=== PATIENT | female | born 1940 | race Caucasian/White ===

== ENCOUNTER 2021-06-06 14:00 | Observation (INO) | payer MEDICARE, MEDICAID ==
[2021-06-06] MEDS ORDERED: Aspirin Chewable 81 MG TAB ONE (14:36)
[2021-06-06 15:07] LABS: #Eosinphils 0.1 10x3/uL (0.0-0.5); #Monocytes 0.5 10x3/uL (0.0-1.1); #Neutrophils 5.7 10x3/uL (1.5-8.4); %Basophils 0.3 % (0.0-2.0); %Eosinophils 1.6 % (0.0-6.0); %Neutrophils 73.8 % (40.0-75.0); Hemoglobin 10.9 g/dL (12.0-15.5); Mean Corpuscular HGB CONC 32.1 g/dL (32.0-36.0); Mean Corpuscular Hemoglobin 29.2 pg (27.0-33.0); Mean Corpuscular Volume 91.2 fl (81.6-98.3); Mean Platelet Volume 9.8 fl (7.4-10.4); Platelet Count 301 10x3/uL (150-450); RBC Distribution Width 15.7 % (11.5-14.5); Red Blood Cell (RBC) Count 3.73 10x6/uL (3.90-5.03); White Blood Cell (WBC) Count 7.7 10x3/uL (3.5-10.5)
[2021-06-06 15:24] LABS: ALT (SGPT) 10 U/L (8-55); AST (SGOT) 13 U/L (5-34); Albumin 3.6 g/dL (3.4-4.8); Alkaline Phosphatase 89 U/L (40-110); Anion Gap 16 mmol/L (10-20); BUN (Urea Nitrogen) 24 mg/dL (9.8-20.1); Bilirubin, Total 1.6 mg/dL (0.2-1.2); Calc. Creatinine Clearance 0 mL/min (70-130); Calcium 9.4 mg/dL (7.8-10.44); Carbon Dioxide 30 mmol/L (23-31); Chloride 97 mmol/L (98-107); Globulin 3.7 g/dL (2.4-3.5); Glucose 200 mg/dL (83-110); Potassium 3.5 mmol/L (3.5-5.1); Protein, Total 7.3 g/dL (5.8-8.1); Sodium 139 mmol/L (136-145)
[2021-06-06] MEDS ORDERED: LIDOCAINE TD PRN (17:09)
[2021-06-06] MEDS ORDERED: Dextrose 5% in Water 1,000 ML IV PRN (17:12)
[2021-06-06] MEDS ORDERED: Acetaminophen 325 MG TAB PO PRN (17:12)
[2021-06-06] MEDS ORDERED: Dextrose 50% Abboject 50 ML SYRINGE SLOW IVP PRN (17:12)
[2021-06-06] MEDS ORDERED: Ondansetron PF 4 MG/2 ML Vial IVP PRN (17:12)
[2021-06-06] MEDS ORDERED: Nitroglycerin 0.4 MG TAB (25 Tab Bottle) SL PRN (17:17)
[2021-06-06 18:08] LABS: Troponin I Less than 0.010 ng/mL (< 0.028)
[2021-06-06 18:43] LABS: SARS-CoV-2 NAA Rapid Test Not Detected (NotDetected)
[2021-06-06 20:24] LABS: Hemoglobin A1c 9.1 % (4.0-6.0)
[2021-06-06] MEDS ORDERED: traMADol HCl 50 MG TAB PO PRN (21:20)
[2021-06-06] MEDS ORDERED: Atorvastatin Calcium 20 MG TAB PO SCH (21:30)
[2021-06-06] MEDS ORDERED: traZODone HCl 50 MG TAB PO SCH (21:30)
[2021-06-06] MEDS ORDERED: DULoxetine 30 MG CAP PO SCH (21:30)
[2021-06-06] MEDS ORDERED: Aripiprazole 10 MG TAB PO SCH (21:30)
[2021-06-06] MEDS ORDERED: Lactated Ringer's 1,000 ML IV SCH (21:30)
[2021-06-06] MEDS ORDERED: Famotidine 20 MG TAB PO SCH (21:30)
[2021-06-06 22:19] VITALS: BMI 41.4
[2021-06-06] MEDS: Gabapentin 300 MG CAP PO SCH (23:14)
[2021-06-06] MEDS: DULoxetine 30 MG CAP PO SCH (23:16)
[2021-06-07 00:10] LABS: Troponin I Less than 0.010 ng/mL (< 0.028)
[2021-06-07] MEDS ORDERED: Nystatin Powder 15 GM BOT TOP SCH (04:00)
[2021-06-07] MEDS: Levothyroxine Sodium 50 MCG TAB PO SCH (07:45)
[2021-06-07 07:59] LABS: #Eosinphils 0.1 10x3/uL (0.0-0.5); #Monocytes 0.5 10x3/uL (0.0-1.1); #Neutrophils 4.5 10x3/uL (1.5-8.4); %Basophils 0.2 % (0.0-2.0); %Eosinophils 2.3 % (0.0-6.0); %Lymphocytes 14.6 % (18.0-47.0); %Neutrophils 74.6 % (40.0-75.0); Hemoglobin 10.2 g/dL (12.0-15.5); Mean Corpuscular HGB CONC 32.3 g/dL (32.0-36.0); Mean Corpuscular Hemoglobin 28.8 pg (27.0-33.0); Mean Corpuscular Volume 89.3 fl (81.6-98.3); Mean Platelet Volume 9.4 fl (7.4-10.4); Platelet Count 256 10x3/uL (150-450); RBC Distribution Width 15.9 % (11.5-14.5); Red Blood Cell (RBC) Count 3.54 10x6/uL (3.90-5.03); White Blood Cell (WBC) Count 6.1 10x3/uL (3.5-10.5)
[2021-06-07 08:23] LABS: Anion Gap 17 mmol/L (10-20); BUN (Urea Nitrogen) 19 mg/dL (9.8-20.1); Calc. Creatinine Clearance 63 mL/min (70-130); Calcium 9.2 mg/dL (7.8-10.44); Carbon Dioxide 26 mmol/L (23-31); Chloride 100 mmol/L (98-107); Glucose 151 mg/dL (83-110); Potassium 3.4 mmol/L (3.5-5.1); Sodium 140 mmol/L (136-145)
[2021-06-07] MEDS: Lantus 1000 UNITS/10 ML VIAL SC SCH (08:27)
[2021-06-07] MEDS: Furosemide 40 MG TAB PO SCH (08:27)
[2021-06-07] MEDS: Alogliptin 6.25 MG TAB PO SCH (08:27)
[2021-06-07] MEDS: Ferrous Sulfate 325 MG TAB PO SCH ×2 (08:56→18:36)
[2021-06-07] MEDS: Rivaroxaban 10 MG TAB PO SCH (08:56)
[2021-06-07] MEDS: Potassium Chloride 20 MEQ TAB PO SCH (08:56)
[2021-06-07] MEDS: Famotidine 20 MG TAB PO SCH ×2 (08:56→22:24)
[2021-06-07] MEDS: Aspirin 81 mg Enteric Coated Tablet PO SCH (08:56)
[2021-06-07] MEDS: Gabapentin 300 MG CAP PO SCH ×3 (08:56→22:25)
[2021-06-07] MEDS: Nystatin Powder 15 GM BOT TOP SCH ×2 (09:04→22:25)
[2021-06-07] MEDS ORDERED: Potassium Chloride 20 MEQ TAB PO SCH (12:00)
[2021-06-07] MEDS: HumaLOG 300 UNITS/3 ML VIAL SC PRN ×2 (12:10→18:37)
[2021-06-07] MEDS: Atorvastatin Calcium 20 MG TAB PO SCH (22:22)
[2021-06-07] MEDS: traZODone HCl 50 MG TAB PO SCH (22:22)
[2021-06-07] MEDS: Aripiprazole 10 MG TAB PO SCH (22:23)
[2021-06-08] MEDS: Levothyroxine Sodium 50 MCG TAB PO SCH (05:50)
[2021-06-08 06:44] LABS: Anion Gap 15 mmol/L (10-20); BUN (Urea Nitrogen) 18 mg/dL (9.8-20.1); Calc. Creatinine Clearance 67 mL/min (70-130); Calcium 8.7 mg/dL (7.8-10.44); Carbon Dioxide 26 mmol/L (23-31); Chloride 104 mmol/L (98-107); Glucose 148 mg/dL (83-110); Potassium 3.8 mmol/L (3.5-5.1); Sodium 141 mmol/L (136-145)
[2021-06-08 07:34] LABS: #Eosinphils 0.1 10x3/uL (0.0-0.5); #Monocytes 0.4 10x3/uL (0.0-1.1); #Neutrophils 3.2 10x3/uL (1.5-8.4); %Basophils 0.4 % (0.0-2.0); %Lymphocytes 20.4 % (18.0-47.0); %Monocytes 8.5 % (0.0-10.0); %Neutrophils 67.5 % (40.0-75.0); Hemoglobin 10.1 g/dL (12.0-15.5); Mean Corpuscular HGB CONC 31.9 g/dL (32.0-36.0); Mean Corpuscular Volume 91.1 fl (81.6-98.3); Mean Platelet Volume 9.8 fl (7.4-10.4); Platelet Count 262 10x3/uL (150-450); RBC Distribution Width 15.8 % (11.5-14.5); Red Blood Cell (RBC) Count 3.48 10x6/uL (3.90-5.03); White Blood Cell (WBC) Count 4.7 10x3/uL (3.5-10.5)
[2021-06-08] MEDS: Furosemide 40 MG TAB PO SCH (08:48)
[2021-06-08] MEDS: Ferrous Sulfate 325 MG TAB PO SCH ×2 (08:49→16:00)
[2021-06-08] MEDS: Alogliptin 6.25 MG TAB PO SCH (08:49)
[2021-06-08] MEDS: Aspirin 81 mg Enteric Coated Tablet PO SCH (08:49)
[2021-06-08] MEDS: Potassium Chloride 20 MEQ TAB PO SCH (08:49)
[2021-06-08] MEDS: Gabapentin 300 MG CAP PO SCH ×3 (08:49→21:52)
[2021-06-08] MEDS: Famotidine 20 MG TAB PO SCH ×2 (08:49→21:51)
[2021-06-08] MEDS: Rivaroxaban 10 MG TAB PO SCH (08:49)
[2021-06-08] MEDS: Nystatin Powder 15 GM BOT TOP SCH ×2 (08:50→21:30)
[2021-06-08] MEDS: Lantus 1000 UNITS/10 ML VIAL SC SCH (08:50)
[2021-06-08] MEDS: HumaLOG 300 UNITS/3 ML VIAL SC PRN (17:24)
[2021-06-08] MEDS: Aripiprazole 10 MG TAB PO SCH (21:50)
[2021-06-08] MEDS: Atorvastatin Calcium 20 MG TAB PO SCH (21:51)
[2021-06-08] MEDS: traZODone HCl 50 MG TAB PO SCH (21:51)
[2021-06-08] MEDS: DULoxetine 30 MG CAP PO SCH (21:52)
[2021-06-09] MEDS: Levothyroxine Sodium 50 MCG TAB PO SCH (05:20)
[2021-06-09 07:46] VITALS: TEMP 98.1
[2021-06-09 09:10] VITALS: BP 114/43
[2021-06-09] MEDS: Famotidine 20 MG TAB PO SCH (10:15)
[2021-06-09] MEDS: Gabapentin 300 MG CAP PO SCH (10:15)
[2021-06-09] MEDS: Ferrous Sulfate 325 MG TAB PO SCH (10:15)
[2021-06-09] MEDS: Alogliptin 6.25 MG TAB PO SCH (10:16)
[2021-06-09] MEDS: Potassium Chloride 20 MEQ TAB PO SCH (10:16)
[2021-06-09] MEDS: Furosemide 40 MG TAB PO SCH (10:16)
[2021-06-09] MEDS: Rivaroxaban 10 MG TAB PO SCH (10:16)
[2021-06-09] MEDS: Aspirin 81 mg Enteric Coated Tablet PO SCH (10:16)
[2021-06-09] MEDS: Lantus 1000 UNITS/10 ML VIAL SC SCH (10:16)
[2021-06-09] MEDS: Nystatin Powder 15 GM BOT TOP SCH (10:17)
== END 2021-06-09 12:59 ==
LOC: CSHERS 14:00 → CSHTELE 19:57 → INTOOBSV 19:57 → CSHTELE 06-07 16:44
PROVIDERS: ADMIT Student in an Organized Health Care Education/Training Program; ATTEND Internal Medicine
DX: R07.89 Other chest pain (principal); N17.9 Acute kidney failure, unspecified; E11.9 Type 2 diabetes mellitus without complications; E03.9 Hypothyroidism, unspecified; G30.9 Alzheimer's disease, unspecified; F02.80 Dementia in other diseases classified elsewhere, unspecified severity, without behavioral disturbance, psychotic disturbance, mood disturbance, and anxiety; K21.9 Gastro-esophageal reflux disease without esophagitis; E78.5 Hyperlipidemia, unspecified; D50.9 Iron deficiency anemia, unspecified; I11.9 Hypertensive heart disease without heart failure; Z20.822 Contact with and (suspected) exposure to COVID-19; Z79.899 Other long term (current) drug therapy; Z79.4 Long term (current) use of insulin; Z79.01 Long term (current) use of anticoagulants
CPT/HCPCS: 71045; 74176; 80048 ×2; 80053; 82962 ×4; 83036; 83880; 84484 ×2; 85025 ×3; 93005; 93306; 96374; 96375; 99285; G0378 ×5; J1610; U0002; 36415; 36416; J1815; J2405; J7070; J7120

== ENCOUNTER 2022-01-10 18:24 | Inpatient (IN) | payer MEDICARE, MEDICAID ==
[2022-01-10 18:51] LABS: #Monocytes 0.3 10x3/uL (0.0-1.1); #Neutrophils 9.5 10x3/uL (1.5-8.4); %Basophils 0.1 % (0.0-2.0); %Monocytes 2.6 % (0.0-10.0); Hemoglobin 12.5 g/dL (12.0-15.5); Mean Corpuscular HGB CONC 32.2 g/dL (32.0-36.0); Mean Corpuscular Hemoglobin 28.2 pg (27.0-33.0); Mean Corpuscular Volume 87.6 fl (81.6-98.3); Mean Platelet Volume 10.1 fl (7.4-10.4); Platelet Count 278 10x3/uL (150-450); RBC Distribution Width 15.2 % (11.5-14.5); Red Blood Cell (RBC) Count 4.43 10x6/uL (3.90-5.03); White Blood Cell (WBC) Count 10.2 10x3/uL (3.5-10.5)
[2022-01-10] MEDS ORDERED: Acetaminophen 500 MG TAB ONE (18:55)
[2022-01-10] MEDS ORDERED: cefTRIAXone\\ROCEPHIN 1 GM VIAL ONE (18:57)
[2022-01-10] MEDS ORDERED: cefTRIAXone\\ROCEPHIN 2 GM VIAL ONE (18:58)
[2022-01-10] MEDS ORDERED: Azithromycin 500 MG VIAL ONE (18:58)
[2022-01-10 19:21] LABS: Bilirubin Neg (Negative); Blood, Urine 50 (Negative); Clarity Cloudy (Clear); Glucose, Urine (Dipstick) Normal (Negative); Ketone, Urine Negative (Negative); Leukocyte 500 (Negative); Nitrite Positive (Negative); Protein, Urine (Dipstick) 15 mg/dl (Neg-Trace); Urobilinogen Normal mg/dL (Less than 2)
[2022-01-10 19:32] LABS: Bacteria/HPF 4+ HPF (None Seen); Mucous/LPF None Seen LPF (<2+); RBC/HPF 0-3 HPF (0-3); Squamous Epithelial 0-3 HPF (0-3); WBC/HPF Greater than 50 HPF (0-3)
[2022-01-10 19:45] LABS: ALT (SGPT) 10 U/L (8-55); AST (SGOT) 11 U/L (5-34); Albumin 3.5 g/dL (3.4-4.8); Alkaline Phosphatase 97 U/L (40-110); Anion Gap 14 mmol/L (10-20); BUN (Urea Nitrogen) 20 mg/dL (9.8-20.1); Bilirubin, Total 1.5 mg/dL (0.2-1.2); Calc. Creatinine Clearance 0 mL/min (70-130); Calcium 8.5 mg/dL (7.8-10.44); Carbon Dioxide 30 mmol/L (23-31); Chloride 102 mmol/L (98-107); Globulin 3.6 g/dL (2.4-3.5); Glucose 157 mg/dL (83-110); Potassium 4.4 mmol/L (3.5-5.1); Protein, Total 7.1 g/dL (5.8-8.1); Sodium 142 mmol/L (136-145)
[2022-01-10] MEDS ORDERED: Dextrose 50% Abboject 50 ML SYRINGE SLOW IVP PRN (21:13)
[2022-01-10] MEDS ORDERED: Senokot S 8.6-50 MG TAB PO PRN (21:13)
[2022-01-10] MEDS ORDERED: HumaLOG 300 UNITS/3 ML VIAL SC PRN (21:13)
[2022-01-10] MEDS ORDERED: Guaifenesin DM 100-10/5 ML UDCUP PO PRN (21:13)
[2022-01-10] MEDS ORDERED: Dextrose 5% in Water 1,000 ML IV PRN (21:13)
[2022-01-10] MEDS ORDERED: Vancomycin 1.5 GRAM/300 ML BAG 1.5 GM in Premix Bag 1 BAG IVPB SCH (21:15)
[2022-01-10] MEDS ORDERED: Vancomycin HCl 500 MG VIAL ONE (21:26)
[2022-01-10] MEDS ORDERED: Lactated Ringer's 1,000 ML IV SCH (21:30)
[2022-01-10 23:01] LABS: SARS-CoV-2 NAA Rapid Test Not Detected (NotDetected)
[2022-01-10 23:04] VITALS: BMI 40.3
[2022-01-10] MEDS ORDERED: Vancomycin HCl 500 MG in Sodium Chloride 0.9% 100 ML IVPB SCH (23:30)
[2022-01-11 01:40] LABS: Legionella Urinary Ag Negative (Negative); Strep pneumo Urine Ag NEGATIVE (NEGATIVE)
[2022-01-11] MEDS: Piperacillin/Tazobactam 3.375 GM in Sodium Chloride 0.9% 100 ML IVPB SCH ×3 (02:02→16:54)
[2022-01-11 05:50] LABS: #Monocytes 0.5 10x3/uL (0.0-1.1); #Neutrophils 5.8 10x3/uL (1.5-8.4); %Basophils 0.1 % (0.0-2.0); %Eosinophils 0.1 % (0.0-6.0); %Lymphocytes 9.7 % (18.0-47.0); %Neutrophils 82.7 % (40.0-75.0); Hemoglobin 10.8 g/dL (12.0-15.5); Mean Corpuscular HGB CONC 31.1 g/dL (32.0-36.0); Mean Corpuscular Hemoglobin 28.6 pg (27.0-33.0); Mean Corpuscular Volume 91.8 fl (81.6-98.3); Mean Platelet Volume 9.4 fl (7.4-10.4); Platelet Count 213 10x3/uL (150-450); RBC Distribution Width 15.4 % (11.5-14.5); Red Blood Cell (RBC) Count 3.78 10x6/uL (3.90-5.03)
[2022-01-11 05:55] LABS: Anion Gap 14 mmol/L (10-20); BUN (Urea Nitrogen) 19 mg/dL (9.8-20.1); Calc. Creatinine Clearance 71 mL/min (70-130); Calcium 7.8 mg/dL (7.8-10.44); Carbon Dioxide 27 mmol/L (23-31); Chloride 108 mmol/L (98-107); Glucose 111 mg/dL (83-110); Potassium 3.9 mmol/L (3.5-5.1); Sodium 145 mmol/L (136-145)
[2022-01-11] MEDS: Levothyroxine Sodium 50 MCG TAB PO SCH (06:02)
[2022-01-11] MEDS ORDERED: Cefepime 2 GM in Sodium Chloride 0.9% 100 ML IVPB SCH (09:00)
[2022-01-11] MEDS ORDERED: Enoxaparin Sodium 40 MG/0.4 ML SYRINGE SC SCH (09:00)
[2022-01-11] MEDS ORDERED: Vancomycin HCl 1 GM in Sodium Chloride 0.9% 250 ML 300 ML IVPB SCH (09:00)
[2022-01-11] MEDS: Alogliptin 25 MG TAB PO SCH (11:14)
[2022-01-11] MEDS: Rivaroxaban 10 MG TAB PO SCH (11:16)
[2022-01-11] MEDS: Gabapentin 100 MG CAP PO SCH (11:16)
[2022-01-11] MEDS: Ferrous Sulfate 325 MG TAB PO SCH ×2 (11:17→20:47)
[2022-01-11] MEDS: Acetaminophen 325 MG TAB PO PRN ×3 (11:25→20:47)
[2022-01-11] MEDS: Nystatin Powder 15 GM BOT TOP SCH ×2 (17:06→20:49)
[2022-01-11] MEDS: traZODone HCl 50 MG TAB PO SCH (20:47)
[2022-01-11] MEDS: Lantus 1000 UNITS/10 ML VIAL SC SCH (20:48)
[2022-01-11] MEDS: Calcium Carbonate 500 MG ChewTAB PO PRN (20:51)
[2022-01-11] MEDS ORDERED: Simvastatin 40 MG TAB PO SCH (21:00)
[2022-01-11] MEDS ORDERED: VANCOMYCIN 1.75 GM/350 ML BAG 1.75 GM in Premix Bag 1 BAG IVPB SCH (22:00)
[2022-01-11] MEDS: Atorvastatin Calcium 20 MG TAB PO SCH (22:32)
[2022-01-12] MEDS: Piperacillin/Tazobactam 3.375 GM in Sodium Chloride 0.9% 100 ML IVPB SCH ×3 (01:30→16:15)
[2022-01-12 05:13] LABS: #Eosinphils 0.1 10x3/uL (0.0-0.5); #Monocytes 0.4 10x3/uL (0.0-1.1); #Neutrophils 3.8 10x3/uL (1.5-8.4); %Eosinophils 2.3 % (0.0-6.0); %Lymphocytes 16.3 % (18.0-47.0); Hemoglobin 10.2 g/dL (12.0-15.5); Mean Corpuscular Hemoglobin 28.7 pg (27.0-33.0); Mean Corpuscular Volume 89.6 fl (81.6-98.3); Mean Platelet Volume 9.8 fl (7.4-10.4); Platelet Count 189 10x3/uL (150-450); Red Blood Cell (RBC) Count 3.56 10x6/uL (3.90-5.03); White Blood Cell (WBC) Count 5.3 10x3/uL (3.5-10.5)
[2022-01-12] MEDS: Levothyroxine Sodium 50 MCG TAB PO SCH (05:54)
[2022-01-12 06:05] LABS: ALT (SGPT) 10 U/L (8-55); AST (SGOT) 13 U/L (5-34); Albumin 2.8 g/dL (3.4-4.8); Alkaline Phosphatase 76 U/L (40-110); Anion Gap 13 mmol/L (10-20); BUN (Urea Nitrogen) 16 mg/dL (9.8-20.1); Bilirubin, Total 1.2 mg/dL (0.2-1.2); Calc. Creatinine Clearance 80 mL/min (70-130); Calcium 7.9 mg/dL (7.8-10.44); Carbon Dioxide 26 mmol/L (23-31); Chloride 107 mmol/L (98-107); Globulin 2.9 g/dL (2.4-3.5); Glucose 132 mg/dL (83-110); Potassium 3.8 mmol/L (3.5-5.1); Protein, Total 5.7 g/dL (5.8-8.1); Sodium 142 mmol/L (136-145)
[2022-01-12] MEDS: Acetaminophen 325 MG TAB PO PRN ×3 (06:13→20:27)
[2022-01-12] MEDS: Gabapentin 100 MG CAP PO SCH (09:07)
[2022-01-12] MEDS: Ferrous Sulfate 325 MG TAB PO SCH ×2 (09:08→20:29)
[2022-01-12] MEDS: Rivaroxaban 10 MG TAB PO SCH (09:08)
[2022-01-12] MEDS: Alogliptin 25 MG TAB PO SCH (09:08)
[2022-01-12] MEDS: Nystatin Powder 15 GM BOT TOP SCH ×2 (09:09→20:31)
[2022-01-12] MEDS: traZODone HCl 50 MG TAB PO SCH (20:27)
[2022-01-12] MEDS: Atorvastatin Calcium 20 MG TAB PO SCH (20:29)
[2022-01-12] MEDS: Lantus 1000 UNITS/10 ML VIAL SC SCH (20:30)
[2022-01-12] MEDS: Calcium Carbonate 500 MG ChewTAB PO PRN (22:34)
[2022-01-13] MEDS: Piperacillin/Tazobactam 3.375 GM in Sodium Chloride 0.9% 100 ML IVPB SCH (00:12)
[2022-01-13 04:46] LABS: #Eosinphils 0.1 10x3/uL (0.0-0.5); #Monocytes 0.4 10x3/uL (0.0-1.1); #Neutrophils 5.5 10x3/uL (1.5-8.4); %Basophils 0.1 % (0.0-2.0); %Eosinophils 1.3 % (0.0-6.0); %Lymphocytes 16.2 % (18.0-47.0); %Monocytes 5.4 % (0.0-10.0); %Neutrophils 76.6 % (40.0-75.0); Hemoglobin 11.4 g/dL (12.0-15.5); Mean Corpuscular HGB CONC 32.1 g/dL (32.0-36.0); Mean Corpuscular Hemoglobin 28.1 pg (27.0-33.0); Mean Corpuscular Volume 87.4 fl (81.6-98.3); Mean Platelet Volume 10.1 fl (7.4-10.4); Platelet Count 222 10x3/uL (150-450); RBC Distribution Width 14.6 % (11.5-14.5); Red Blood Cell (RBC) Count 4.06 10x6/uL (3.90-5.03); White Blood Cell (WBC) Count 7.2 10x3/uL (3.5-10.5)
[2022-01-13] MEDS: Levothyroxine Sodium 50 MCG TAB PO SCH (05:09)
[2022-01-13] MEDS ORDERED: Sodium Chloride 0.9% 100 ML ONE (08:27)
[2022-01-13] MEDS: Acetaminophen 325 MG TAB PO PRN ×2 (08:50→14:43)
[2022-01-13] MEDS: Gabapentin 100 MG CAP PO SCH (08:52)
[2022-01-13] MEDS: Alogliptin 25 MG TAB PO SCH (08:53)
[2022-01-13] MEDS: Rivaroxaban 10 MG TAB PO SCH (08:55)
[2022-01-13] MEDS: Ferrous Sulfate 325 MG TAB PO SCH ×2 (08:55→22:01)
[2022-01-13] MEDS: Nystatin Powder 15 GM BOT TOP SCH ×2 (08:55→22:08)
[2022-01-13] MEDS: Atorvastatin Calcium 20 MG TAB PO SCH (22:01)
[2022-01-13] MEDS: traZODone HCl 50 MG TAB PO SCH (22:02)
[2022-01-13] MEDS: Lantus 1000 UNITS/10 ML VIAL SC SCH (22:04)
[2022-01-14] MEDS: Levothyroxine Sodium 50 MCG TAB PO SCH (07:16)
[2022-01-14] MEDS ORDERED: Meropenem 1 GM in Sodium Chloride 0.9% 100 ML IVPB SCH ×2 (10:00→16:00)
[2022-01-14] MEDS: Gabapentin 100 MG CAP PO SCH (11:24)
[2022-01-14] MEDS: Alogliptin 25 MG TAB PO SCH (11:25)
[2022-01-14] MEDS: Ferrous Sulfate 325 MG TAB PO SCH ×2 (11:27→21:50)
[2022-01-14] MEDS: Nystatin Powder 15 GM BOT TOP SCH ×2 (11:28→21:51)
[2022-01-14] MEDS: Rivaroxaban 10 MG TAB PO SCH (11:42)
[2022-01-14] MEDS: Ondansetron PF 4 MG/2 ML Vial IVP PRN ×2 (12:38→18:12)
[2022-01-14] MEDS: Calcium Carbonate 500 MG ChewTAB PO PRN (12:41)
[2022-01-14 13:55] LABS: Prothrombin Time 11.3 sec (9.5-12.1)
[2022-01-14] MEDS: Acetaminophen 325 MG TAB PO PRN ×2 (16:22→22:57)
[2022-01-14] MEDS: Meropenem 1 GM in Sodium Chloride 0.9% 100 ML IVPB SCH ×2 (16:23→18:11)
[2022-01-14] MEDS: traZODone HCl 50 MG TAB PO SCH (21:49)
[2022-01-14] MEDS: Lantus 1000 UNITS/10 ML VIAL SC SCH (21:50)
[2022-01-14] MEDS: Atorvastatin Calcium 20 MG TAB PO SCH (21:50)
[2022-01-15] MEDS: Meropenem 1 GM in Sodium Chloride 0.9% 100 ML IVPB SCH ×2 (00:12→10:35)
[2022-01-15] MEDS: Levothyroxine Sodium 50 MCG TAB PO SCH (05:15)
[2022-01-15] MEDS: Acetaminophen 325 MG TAB PO PRN ×3 (05:16→15:19)
[2022-01-15] MEDS ORDERED: Meropenem 1 GM VIAL ONE (10:10)
[2022-01-15] MEDS: Alogliptin 25 MG TAB PO SCH (10:18)
[2022-01-15] MEDS: Rivaroxaban 10 MG TAB PO SCH (10:19)
[2022-01-15] MEDS: Gabapentin 100 MG CAP PO SCH (10:21)
[2022-01-15] MEDS: Ferrous Sulfate 325 MG TAB PO SCH (10:21)
[2022-01-15] MEDS: Nystatin Powder 15 GM BOT TOP SCH (13:53)
[2022-01-15 16:06] VITALS: BP 131/63; TEMP 98
== END 2022-01-15 17:15 | DRG 871 ==
LOC: CSHERS 18:24 → CSHTELE 22:56
PROVIDERS: ADMIT Student in an Organized Health Care Education/Training Program; ATTEND Internal Medicine
PROC: 3E03329 Introduction of Other Anti-infective into Peripheral Vein, Percutaneous Approach (ICD-10-PCS; 2022-01-10)
PROC: 02HV33Z Insertion of Infusion Device into Superior Vena Cava, Percutaneous Approach (ICD-10-PCS; principal; 2022-01-15)
PROC: B548ZZA Ultrasonography of Superior Vena Cava, Guidance (ICD-10-PCS; 2022-01-15)
DX: A41.51 Sepsis due to Escherichia coli [E. coli] (principal); J69.0 Pneumonitis due to inhalation of food and vomit; G93.41 Metabolic encephalopathy; J96.01 Acute respiratory failure with hypoxia; J18.9 Pneumonia, unspecified organism; N39.0 Urinary tract infection, site not specified; Z16.24 Resistance to multiple antibiotics; Z68.41 Body mass index [BMI] 40.0-44.9, adult; Z66 Do not resuscitate; B96.20 Unspecified Escherichia coli [E. coli] as the cause of diseases classified elsewhere; N18.30 Chronic kidney disease, stage 3 unspecified; G30.9 Alzheimer's disease, unspecified; F02.80 Dementia in other diseases classified elsewhere, unspecified severity, without behavioral disturbance, psychotic disturbance, mood disturbance, and anxiety; E78.5 Hyperlipidemia, unspecified; E66.01 Morbid (severe) obesity due to excess calories; I12.9 Hypertensive chronic kidney disease with stage 1 through stage 4 chronic kidney disease, or unspecified chronic kidney disease; R65.20 Severe sepsis without septic shock; E03.9 Hypothyroidism, unspecified; G47.00 Insomnia, unspecified; F32.A Depression, unspecified; G89.29 Other chronic pain; E86.0 Dehydration; K46.9 Unspecified abdominal hernia without obstruction or gangrene; E11.22 Type 2 diabetes mellitus with diabetic chronic kidney disease; E11.65 Type 2 diabetes mellitus with hyperglycemia; K21.9 Gastro-esophageal reflux disease without esophagitis; E11.40 Type 2 diabetes mellitus with diabetic neuropathy, unspecified; Y95 Nosocomial condition; Z20.822 Contact with and (suspected) exposure to COVID-19; Z79.899 Other long term (current) drug therapy; Z79.84 Long term (current) use of oral hypoglycemic drugs; Z79.4 Long term (current) use of insulin; Z79.890 Hormone replacement therapy; Z83.3 Family history of diabetes mellitus; Z86.718 Personal history of other venous thrombosis and embolism; Z87.440 Personal history of urinary (tract) infections
CPT/HCPCS: 36415; 36416; 36569; 51701; 71045; 74176; 80048; 80053; 81003; 81015; 83605; 84145; 84443; 85025; 85610; 87040; 87077; 87086; 87186; 87324; 87449; 87899; 93005; 93010; 93970; 94760; 96365; 96366; 96375; C1751; J0456; J0696; J1815; J2185; J2405; J2543; J3370; J3490; J7120; U0002

== ENCOUNTER 2022-05-28 15:46 | Emergency (ER) | payer MEDICARE, OTHER ==
[2022-05-28] MEDS ORDERED: Morphine 4 MG/ML VIAL ONE (16:46)
[2022-05-28] MEDS ORDERED: Ondansetron PF 4 MG/2 ML Vial ONE (16:47)
[2022-05-28 19:55] LABS: #Eosinphils 0.1 10x3/uL (0.0-0.5); #Monocytes 0.6 10x3/uL (0.0-1.1); #Neutrophils 6.6 10x3/uL (1.5-8.4); %Basophils 0.2 % (0.0-2.0); %Eosinophils 0.8 % (0.0-6.0); %Lymphocytes 16.6 % (18.0-47.0); %Monocytes 6.3 % (0.0-10.0); %Neutrophils 75.8 % (40.0-75.0); Hemoglobin 11.1 g/dL (12.0-15.5); Mean Corpuscular Hemoglobin 29.6 pg (27.0-33.0); Mean Corpuscular Volume 89.6 fl (81.6-98.3); Mean Platelet Volume 9.5 fl (7.4-10.4); Platelet Count 317 10x3/uL (150-450); RBC Distribution Width 13.8 % (11.5-14.5); Red Blood Cell (RBC) Count 3.75 10x6/uL (3.90-5.03); White Blood Cell (WBC) Count 8.7 10x3/uL (3.5-10.5)
[2022-05-28 20:10] LABS: ALT (SGPT) 15 U/L (8-55); AST (SGOT) 13 U/L (5-34); Albumin 3.3 g/dL (3.4-4.8); Alkaline Phosphatase 130 U/L (40-110); Anion Gap 16 mmol/L (10-20); BUN (Urea Nitrogen) 16 mg/dL (9.8-20.1); Calc. Creatinine Clearance 0 mL/min (70-130); Calcium 8.5 mg/dL (7.8-10.44); Carbon Dioxide 23 mmol/L (23-31); Chloride 101 mmol/L (98-107); Estimated GFR 45; Globulin 3.4 g/dL (2.4-3.5); Glucose 266 mg/dL (83-110); Potassium 4.2 mmol/L (3.5-5.1); Protein, Total 6.7 g/dL (5.8-8.1); Sodium 136 mmol/L (136-145)
== END 2022-05-28 23:27 | disposition home or self-care (01) ==
LOC: CSHERS 15:46
DX: M79.672 Pain in left foot (principal); K21.9 Gastro-esophageal reflux disease without esophagitis; E78.5 Hyperlipidemia, unspecified; I10 Essential (primary) hypertension; E03.9 Hypothyroidism, unspecified; D64.9 Anemia, unspecified; E11.9 Type 2 diabetes mellitus without complications; W19.XXXA Unspecified fall, initial encounter
CPT/HCPCS: 80053; 85025; 96374; 96375; J2270; J2405